=== PATIENT | female | born 1995 ===

== ENCOUNTER 2018-02-28 15:31 | Outpatient (CLI) | payer BC, OTHER ==
[2018-03-01 14:26] LABS: HIV AG/AB 4TH GEN NON-REACTIVE (NON-REACTIVE)
== END 2018-02-28 23:59 | disposition home or self-care (01) ==
LOC: LAB.WCP 15:31
PROVIDERS: ATTEND Family Medicine
DX: Z71.89 Other specified counseling (principal)
CPT/HCPCS: 36415; 81599; 87389; 87491; 87591

== ENCOUNTER 2021-06-17 08:00 | Outpatient (CLI) | payer BC ==
--- NOTE | 2021-06-18 13:23 | XRAY Report ---
PROCEDURE: Foot 3 View LT INDICATIONS: PAIN IN LEFT FOOT TECHNIQUE: 3 views of the foot were acquired. COMPARISON: None FINDINGS: Bones: No fractures or dislocations. No suspicious bony lesions. Soft tissues: No tibiotalar joint effusion. Achilles tendon appears normal. IMPRESSION: Unremarkable radiographic examination of left foot. Reviewed by: Raul Hernandez MD on 06/18/2021 1:21 PM PDT Approved by: Rual Hernandez MD on 06/18/2021 1:21 PM PDT Station ID: [id number]
== END 2021-06-17 23:59 | disposition home or self-care (01) ==
LOC: DI.N 08:00
PROVIDERS: ATTEND Registered Nurse
DX: M79.672 Pain in left foot (principal); R22.42 Localized swelling, mass and lump, left lower limb

== ENCOUNTER 2021-11-20 08:00 | Outpatient (CLI) | payer BC | END 2021-11-20 23:59 | disposition home or self-care (01) | LOC: LAB.N 08:00 | PROVIDERS: ATTEND Nurse Practitioner | DX: N39.0 Urinary tract infection, site not specified (principal) | CPT/HCPCS: 87086; 87181 ==

== ENCOUNTER 2022-11-02 08:00 | Outpatient (CLI) | payer BC | END 2022-11-02 23:59 | disposition home or self-care (01) | LOC: LAB.N 08:00 | PROVIDERS: ATTEND Nurse Practitioner | DX: L02.91 Cutaneous abscess, unspecified (principal) | CPT/HCPCS: 87070; 87181; 87205 ==